=== PATIENT | female | born 1950 | race Caucasian/White ===

== ENCOUNTER 2022-05-02 08:57 | Outpatient (CLI) | payer MEDICARE, SELFPAY ==
[2022-05-02 13:18] LABS: Free T4 Free Thyroxine 1.31 ng/mL (0.78-2.19)
== END 2022-05-02 08:58 | disposition home or self-care (01) ==
LOC: ANHWCLAB 09:00
PROVIDERS: PCP Family Medicine; Visit Provider Internal Medicine Endocrinology, Diabetes & Metabolism
DX: E89.0 Postprocedural hypothyroidism (principal)
CPT/HCPCS: 36415; 84439; 84443